=== PATIENT | female | born 1965 | race Caucasian/White ===

== ENCOUNTER 2022-02-06 08:55 | Outpatient (CLI) | payer OTHER | END 2022-02-06 08:56 | disposition home or self-care (01) | LOC: CSHMAMMO 08:55 | PROVIDERS: ATTEND Student in an Organized Health Care Education/Training Program | DX: Z12.31 Encounter for screening mammogram for malignant neoplasm of breast (principal); Z91.89 Other specified personal risk factors, not elsewhere classified; Z80.3 Family history of malignant neoplasm of breast | CPT/HCPCS: 77063; 77067 ==

== ENCOUNTER 2022-03-07 08:53 | Outpatient (CLI) | payer OTHER, MEDICAID ==
[2022-03-07] MEDS ORDERED: Iopamidol 300 61% 100 ML VIAL FS ONE (09:45)
== END 2022-03-07 08:54 | disposition home or self-care (01) ==
LOC: CSHCT 08:53
PROVIDERS: ATTEND Internal Medicine
DX: K74.60 Unspecified cirrhosis of liver (principal); R10.30 Lower abdominal pain, unspecified; K42.9 Umbilical hernia without obstruction or gangrene; R93.422 Abnormal radiologic findings on diagnostic imaging of left kidney
CPT/HCPCS: 74178; Q9967